=== PATIENT | female | born 1975 | race Caucasian/White ===

== ENCOUNTER 2024-04-19 11:01 | Day surgery (SDC) | payer OTHER ==
[~2024-04-19] VITALS: Ht 152.4 cm; Wt 71.7 kg
[~2024-04-19 11:01] MED LIST: Ativan0.5 MG PO; Atropine Sulfate 0.1 MG/ML 10ML SYR ONE; BENADRYL25 MG PO; ESCI5 PO; Esgic Tablet1 EACH PO; Flonase 0.05% N16 GM; Glycopyrrolate 0.2 MG/ML 1MLVIAL ONE; IBUP800 PO; LORA1 PO; Lactated Ringer's 1,000 ML IV ONE; Lidocaine 2% 5 ML SDV ONE; Lidocaine HCl/Pf 1% 5 ML VIAL ONE; Methylene Blue 1% 100 MG/10 ML VIAL ONE; Ondansetron HCl 2 MG / ML 2ML Vial ONE; ePHEDrine Sulfate 50 MG/ML 1ML Injection ONE; propofoL 50 ML IV ONE
[2024-04-19] MEDS ORDERED: LEVSOD25 (11:36)
[2024-04-19] MEDS ORDERED: NP THYROID (11:48)
[2024-04-19] MEDS ORDERED: [UNRECOGNIZED DRUG - OTHER] (11:49)
[2024-04-19] MEDS ORDERED: Vitamin D1000 UNI1 (11:49)
[2024-04-19] MEDS ORDERED: Lactated Ringer's 1,000 ML IV ONE (12:36)
[2024-04-19 13:47] VITALS: BP 131/86
== END 2024-04-19 13:42 | disposition home or self-care (01) ==
LOC: ORSCSDS 11:01
PROVIDERS: Internal Medicine Gastroenterology
PROC: 0DJD8ZZ Inspection of Lower Intestinal Tract, Via Natural or Artificial Opening Endoscopic (ICD-10-PCS; principal; 2024-04-19 12:15)
DX: Z12.11 Encounter for screening for malignant neoplasm of colon (principal); K57.30 Diverticulosis of large intestine without perforation or abscess without bleeding; Z83.719 Family history of colon polyps, unspecified; E06.3 Autoimmune thyroiditis; Z87.891 Personal history of nicotine dependence
CPT/HCPCS: J0461; J2001; J2405; J2704; J7120; Q9968